=== PATIENT | male | born 1990 | race African-American/Black ===

== ENCOUNTER 2019-03-17 10:55 | Outpatient (CLI) | payer OTHER | END 2019-03-17 11:21 | disposition short-term general hospital (02) | LOC: AMB 10:55 | DX: S90.00XA Contusion of unspecified ankle, initial encounter (principal); W11.XXXA Fall on and from ladder, initial encounter; Y93.89 Activity, other specified; Y92.89 Other specified places as the place of occurrence of the external cause | CPT/HCPCS: A0425; A0427 ==